=== PATIENT | male | born 2005 ===

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

== ENCOUNTER 2024-06-09 21:18 | Emergency (ER) | payer OTHER ==
[~2024-06-09] VITALS: Ht 172.7 cm; Wt 81.7 kg
[~2024-06-09 21:18] MED LIST: Crutch1 EACH MISC
[2024-06-09 21:39] VITALS: BP 145/85
== END 2024-06-09 22:48 | disposition home or self-care (01) ==
LOC: ER 21:18
DX: S93.401A Sprain of unspecified ligament of right ankle, initial encounter (principal); X50.1XXA Overexertion from prolonged static or awkward postures, initial encounter; Y93.66 Activity, soccer
CPT/HCPCS: 73610; 99283-25